=== PATIENT | female | born 1935 | race Caucasian/White ===

== ENCOUNTER → 2020-11-14 15:38 | Outpatient (BNVA) | payer MEDICARE, BC, SELFPAY | PROVIDERS: PCP Family Medicine; Visit Provider Specialist | DX: G50.0 Trigeminal neuralgia (principal); R26.81 Unsteadiness on feet; R48.2 Apraxia; R20.0 Anesthesia of skin; R20.2 Paresthesia of skin | CPT/HCPCS: 99205 ==

== ENCOUNTER 2020-11-27 10:36 | Outpatient (CLI) | payer MEDICARE, BC, SELFPAY ==
--- NOTE | 2020-11-27 11:01 | MR_ITS ---
WS: [id number] [facility] MRI BRAIN WITHOUT CONTRAST HISTORY: Multiple falls. COMPARISON: 03/19/2011 TECHNIQUE: Diffusion imaging, multiplanar T1, T2 and FLAIR imaging obtained. No evidence for acute infarct or hemorrhage. Neff-white matter differentiation is normal. Mild increased T2 signal surrounding the ventricles extending into the centrum semiovale ovale. Incre ased T2 signal in the LEFT caren. No prior infarcts. Mild atrophy. Ventricles and extra-axial spaces are normal. No inferior displacement of cerebellar tonsils. The sella turcica and pituitary gland are unremarkabl e. Dural venous sinuses and [place] demonstrate no abnormality on this unenhanced studies. Paranasal sinuses: Clear. Mastoid air cells: Small amount of fluid in the LEFT mastoid air cells. Calvarium and scalp: Intact. MR/MR head wo con* [id number] IMPRESSION: 1. No acute infarct or mass effect. 2. Mild cerebral atrophy. 3. Mild progression of chronic microvascular ischemic changes since 2010. 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
== END 2020-11-27 10:37 | disposition home or self-care (01) ==
LOC: RADWPI 10:43
PROVIDERS: PCP Family Medicine; Visit Provider Specialist
DX: G50.0 Trigeminal neuralgia (principal); R48.2 Apraxia; G31.84 Mild cognitive impairment of uncertain or unknown etiology
CPT/HCPCS: 70551; 96116; 99214

== ENCOUNTER → 2022-02-25 15:18 | Outpatient (BNVA) | payer MEDICARE, BC, SELFPAY | PROVIDERS: PCP Family Medicine; Visit Provider Specialist | DX: G50.0 Trigeminal neuralgia (principal); M48.062 Spinal stenosis, lumbar region with neurogenic claudication; R52 Pain, unspecified | CPT/HCPCS: 99213 ==